=== PATIENT | male | born 1960 | race Caucasian/White ===

== ENCOUNTER 2022-10-21 21:02 | Emergency (ER) | payer OTHER, SELFPAY ==
[2022-10-21 21:11] VITALS: BP 107/74; PULSE 71; RESP 19; O2SAT 99
--- NOTE | 2022-10-21 21:13 | DI.RAD.S_ITS ---
PROCEDURE: XR CHEST 1V INDICATIONS: chest pain TECHNIQUE: One view of the chest was acquired. COMPARISON: None. FINDINGS: Surgical changes and devices: None. Lungs and pleura: Lungs are clear. No pleural effusions or pneumothorax. Mediastinum: Mediastinal contours appear normal. Heart size is normal. Bones and chest wall: No suspicious bony lesions. Overlying soft tissues appear unremarkable. IMPRESSION: 1. No acute cardiopulmonary disease. Dictated by: Fantasma Wilks M.D. on 10/21/2022 at 23:46 Approved by: [email or web address] Wilks M.D. on 10/21/2022 at 23:46
[2022-10-21 21:14] VITALS: BP 109/76; PULSE 71; RESP 17; TEMP 36.9; O2SAT 97; BMI 30.5
[2022-10-21 21:23] LABS: Add Manual Diff / Slide Review NO; Basophils Absolute Auto 0 /uL (0-100); Basophils Percent Auto 0.5 % (0-2); Eosinophils Absolute Auto 200 /uL (0-450); Eosinophils Percent Auto 1.8 % (2-4); Hematocrit 39.6 % (41-53); Hemoglobin 13.4 g/dL (13.5-17.5); INR 1.1 (0.9-1.3); Lymphocytes Absolute Auto 1900 /uL (1100-4500); Lymphocytes Percent Auto 20.5 % (25-40); Mean Corpuscular HGB Conc 33.9 % (30-36); Mean Corpuscular Hemoglobin 28.7 PG (26-34); Mean Corpuscular Volume 84.5 fL (80-100); Monocytes Absolute Auto 1000 /uL (0-900); Monocytes Percent Auto 10.2 % (3-14); Neutrophils Absolute Auto 6300 /uL (1500-7000); Platelet Count 236 X10^3/uL (150-400); Prothrombin Time 12.3 SECONDS (10.1-12.7); Red Blood Cell Count 4.69 X10^6/uL (4.5-5.9); Red Cell Distribution Width 14.6 % (11.6-14.8); White Blood Cell Count 9.3 X10^3/uL (4.5-11.0)
[2022-10-21 21:26] LABS: PTT Partial Thromboplastin Tim 27 SECONDS (26-36)
[2022-10-21 21:29] LABS: Alanine Aminotransferase 26 IU/L (<50); Albumin 3.8 g/dL (3.5-5.0); Albumin Globulin Ratio 1.2 (1.0-2.8); Alkaline Phosphatase 101 U/L (38-126); Aspartate Aminotransferase 31 IU/L (17-59); BUN Creatinine Ratio 24.7 (6-22); Bilirubin Total 0.4 mg/dL (0.2-1.3); Blood Urea Nitrogen 24 mg/dL (9-20); Calcium 8.3 mg/dL (8.4-10.2); Carbon Dioxide 29 mmol/L (22-32); Chloride 104 mmol/L (98-107); Creatine Kinase 102 U/L (55-170); Estimated Glomerular Filt Rate > 60 mL/min (>60); Globulin 3.1 g/dL (1.7-4.1); Glucose 109 mg/dL (80-110); HEMOLYSIS 17 (0-50); Lipase 117 U/L (23-300); Magnesium 2.2 mg/dL (1.6-2.3); Potassium 3.4 mmol/L (3.4-5.1); Sodium 137 mmol/L (137-145); Total Protein 6.9 g/dL (6.3-8.2)
[2022-10-21 21:30] VITALS: BP 101/72; PULSE 69; RESP 19; O2SAT 99
[2022-10-21 21:39] LABS: Troponin I 0.012 ng/mL (0.01-0.034)
--- NOTE | 2022-10-21 21:53 | ED_ITS ---
HPI - General Adult General Chief complaint: Syncope Stated complaint: Syncope Time Seen by Provider: 10/21/22 21:29 Source: patient, family and EMS Mode of arrival: EMS Limitations: no limitations History of Present Illness HPI narrative: patient is a 62-year-old male. Has been camping for the past couple days. He states that last evening he did not sleep very well. He woke up today and was generally tired and fatigued. He did eat today. He did drink liquids today. He was able to go on a short hike today. He states that this evening he was sitting at a picnic table. His family is at bedside and did provide some history as well. Apparently he started to not feel very well. Family that was sitting next him stated that he looked pale. He then put his head down. Family states he did lose consciousness for a very short period of time. He woke up afterwards. Was not confused. Did happened 1 further time. He states that prior to the events he was not having chest pain and shortness of breath or palpitations or nausea or vomiting. At the time of my evaluation he states he feels much better and actually feels better than what he did earlier in the day. Related Data Allergies Allergy/AdvReac Type Severity Reaction Status Date / Time cephalexin AdvReac Rash Verified 10/21/22 21:14 Review of Systems Constitutional Constitutional: Reports system reviewed and no additional complaints, except as documented ENT Ears, Nose, Mouth, and Throat: Reports system reviewed and no additional complaints, except as documented Cardiovascular Cardiovascular: Reports system reviewed and no additional complaints, except as documented Respiratory Respiratory: Reports system reviewed and no additional complaints, except as documented Neurologic Neurologic: Reports system reviewed and no additional complaints, except as documented Hematologic/Lymphatic On Anticoagulants: No Allergic/Immunologic Allergic/Immunologic: Reports system reviewed and no additional complaints, except as documented Patient History Social History Smoking Status: Never smoker Smoking Status: Never smoker alcohol intake frequency: holidays/special occasions only Substance Use Type: does not use Exam Initial Vital Signs Initial Vital Signs: Vital Signs Pulse Rate 71 10/21/22 21:11 Respiratory Rate 19 10/21/22 21:11 Blood Pressure 107/74 10/21/22 21:11 Pulse Oximetry 99 10/21/22 21:11 Const General: cooperative, comfortable and No ill appearing [facility] Head: normal to inspection and normocephalic Resp Effort & Inspection: normal respiratory effort Auscultation: clear to auscultation bilaterally Cardio Rate: regular rate Rhythm: regular rhythm GI Inspection: normal to inspection Skin General: no rashes or lesions noted Neuro General: patient alert, patient awake and moves all extremities Course Orders Ordered: ED Orders 10/21/22 21:05 Complete Blood Count AUTO DIFF Stat Comprehensive Metabolic Panel Stat Lipase Stat Magnesium Stat PTT Partial Thromboplastin Maco Stat Prothrombin Time INR Stat Troponin & CK Cardiac Panel Stat 10/21/22 21:13 XR chest 1V Stat EKG-12 Lead Stat Discontinued Medications Aspirin (Aspirin 81 Mg Chew Tab) 324 mg PO NOW ONE Stop: 10/21/22 21:14 Vital Signs Vital signs: Vital Signs - 8 hr 10/21/22 21:14 10/21/22 21:11 10/21/22 21:11 Temperature 98.4 F Pulse Rate 71 71 Respiratory Rate 17 19 Blood Pressure 109/76 107/74 Pulse Oximetry 97 99 Oxygen Delivery Method Room Air 10/21/22 21:30 10/21/22 21:30 10/21/22 22:00 Temperature Pulse Rate 69 Respiratory Rate 19 Blood Pressure 101/72 115/75 Pulse Oximetry 99 Oxygen Delivery Method 10/21/22 22:00 10/21/22 22:30 10/21/22 22:30 Temperature Pulse Rate 72 76 Respiratory Rate 17 20 Blood Pressure 111/82 Pulse Oximetry 100 94 Oxygen Delivery Method 10/21/22 23:00 Temperature Pulse Rate 75 Respiratory Rate 18 Blood Pressure Pulse Oximetry 99 Oxygen Delivery Method Medical Decision Making Lab Data Lab results reviewed: Yes I reviewed the patient's lab results. 10/21/22 21:05 10/21/22 21:05 Labs: Lab Results 10/21/22 10/21/22 10/21/22 Range/Units 21:05 21:05 21:05 WBC 9.3 (4.5-11.0) X10^3/uL RBC 4.69 (4.5-5.9) X10^6/uL Hgb 13.4 L (13.5-17.5) g/dL Hct 39.6 L (41-53) % MCV 84.5 (80-100) fL MCH 28.7 (26-34) PG MCHC 33.9 (30-36) % RDW 14.6 (11.6-14.8) % Plt Count 236 (150-400) X10^3/uL Neut % (Auto) 67.0 (50-75) % Lymph % (Auto) 20.5 L (25-40) % Garrard % (Auto) 10.2 (3-14) % Eos % (Auto) 1.8 L (2-4) % Baso % (Auto) 0.5 (0-2) % Neut # (Auto) 6300 (7974-1038) /uL Lymph # (Auto) 1900 (0350-9621) /uL Garrard # (Auto) 1000 H (0-900) /uL Eos # (Auto) 200 (0-450) /uL Baso # (Auto) 0 (0-100) /uL PT 12.3 (10.1-12.7) SECONDS INR 1.1 (0.9-1.3) APTT 27 (26-36) SECONDS Sodium 137 (137-145) mmol/L Potassium 3.4 (3.4-5.1) mmol/L Chloride 104 (98-107) mmol/L Carbon Dioxide 29 (22-32) mmol/L BUN 24 H (9-20) mg/dL Creatinine 0.97 (0.66-1.25) mg/dL Estimated GFR > 60 (>60) mL/min BUN/Creatinine Ratio 24.7 H (6-22) Glucose 109 (80-110) mg/dL Calcium 8.3 L (8.4-10.2) mg/dL Magnesium 2.2 (1.6-2.3) mg/dL Total Bilirubin 0.4 (0.2-1.3) mg/dL AST 31 (17-59) IU/L ALT 26 (<50) IU/L Alkaline Phosphatase 101 (38-126) U/L Total Creatine Kinase 102 (55-170) U/L Troponin I 0.012 (0.01-0.034) ng/mL Total Protein 6.9 (6.3-8.2) g/dL Albumin 3.8 (3.5-5.0) g/dL Globulin 3.1 (1.7-4.1) g/dL Albumin/Globulin Ratio 1.2 (1.0-2.8) Lipase 117 (23-300) U/L Imaging Data Chest x-ray: Radiologist's Impression: PROCEDURE:? XR CHEST 1V ? INDICATIONS:? chest pain ? TECHNIQUE:? One view of the chest was acquired.? ? COMPARISON:? None. ? FINDINGS:? ? Surgical changes and devices:? None.? ? Lungs and pleura:? Lungs are clear.? No pleural effusions or pneumothorax.? ? Mediastinum:? Mediastinal contours appear normal.? Heart size is normal.? ? Bones and chest wall:? No suspicious bony lesions.? Overlying soft tissues appear unremarkable.? ? IMPRESSION:? ? 1.? No acute cardiopulmonary disease. ? ECG Data Attestation: I personally reviewed and interpreted this ECG as follows: Interpretation: Sinus rhythm Ventricular rate is 70 Normal axis Normal QRS Normal QTC No ST T wave changes MDM Narrative Medical decision making narrative: EKG is unremarkable. Labs unremarkable. Patient is hydrated. He feels better than what he did throughout the day today. No palpitations prior to the event. Low suspicion for seizure. Low suspicion for ACS/TIA/CVA. We did discuss the possibility of a abnormal heart rhythm but I feel that this is unlikely. Patient ambulated around the emergency department. We discussed the lack of a definitive Etiology for the patient's symptoms. Will discharge patient home. No indication for admission in the hospital. He is given return precautions. He expressed understanding and agreement. Discharge Plan Departure Patient Disposition: Home Clinical Impression: Syncope Instructions: DI for Syncope in Adults (Fainting) Activity Restrictions/Additional Instructions: I do recommend that you continue to take any medications as directed. Be sure that you increase your fluid intake. Contact your primary doctor for a follow- up. Return in the emergency department for new or worsening symptoms Stand Alone Forms: Patient Portal/API
[2022-10-21 22:00] VITALS: BP 115/75; PULSE 72; RESP 17; O2SAT 100
[2022-10-21 22:30] VITALS: BP 111/82; PULSE 76; RESP 20; O2SAT 94
[2022-10-21 23:00] VITALS: PULSE 75; RESP 18; O2SAT 99
== END 2022-10-21 23:54 | disposition home or self-care (01) ==
PROVIDERS: Emergency Provider Emergency Medicine
DX: R55 Syncope and collapse (principal); R07.9 Chest pain, unspecified
CPT/HCPCS: 36415; 71045; 80053; 82550; 83690; 83735; 84484; 85025; 85610; 85730; 93005; 93010; 99283; 99284